=== PATIENT | female | born 1985 | race Caucasian/White ===

== ENCOUNTER 2017-04-19 14:15 | Emergency (ER) | payer OTHER ==
[~2017-04-19] VITALS: Ht 165.1 cm; Wt 113.5 kg
[2017-04-19 16:26] VITALS: BP 156/84
== END 2017-04-19 16:26 | disposition home or self-care (01) ==
LOC: ED 14:15
DX: M54.5 Low back pain (principal); R03.0 Elevated blood-pressure reading, without diagnosis of hypertension

== ENCOUNTER 2017-11-10 21:40 | Emergency (ER) | payer OTHER ==
[~2017-11-10] VITALS: Ht 170.2 cm; Wt 109.3 kg
[2017-11-10 22:02] VITALS: Ht 170.2 cm; Wt 109.3 kg
[2017-11-10 23:52] LABS: BASOPHIL % 0.2 % (0-2); PLATELET COUNT 376 x10^3mcL (130-400)
[2017-11-10 23:54] LABS: UA SPECIFIC GRAVITY >=1.030 (1.005-1.035); microscopic required? YES; urine erythrocyte 2+ (NEGATIVE)
[2017-11-11 00:01] LABS: CALCIUM 8.3 mg/dL (8.5-10.1); CHLORIDE SERUM 102 mmol/L (98-107); CREATININE SERUM 0.8 mg/dL (0.6-1.0); GFR1 > 60 mL/min; GLUCOSE SERUM 98 mg/dL (74-106); POTASSIUM SERUM 3.6 mmol/L (3.5-5.1); SODIUM SERUM 138 mmol/L (136-145)
[2017-11-11 00:04] LABS: RED CELL DISTRIBUTION WIDTH 21.8 % (11.5-14.5)
[2017-11-11 00:09] LABS: ALKALINE PHOSPHATASE 78 U/L (46-116); ALT/SGPT 21 U/L (14-59); AST/SGOT 14 U/L (15-37); BILIRUBIN TOTAL 0.2 mg/dL (0.20-1.00); LIPASE 306 IU/L (73-393); TOTAL PROTEIN, SERUM 7.6 g/dL (6.4-8.2)
[2017-11-11 00:10] LABS: ALBUMIN 3.2 g/dL (3.4-5.0)
[2017-11-11 01:12] VITALS: BP 148/75
== END 2017-11-11 01:12 | disposition home or self-care (01) ==
LOC: ED 21:40
PROVIDERS: Emergency Medicine
DX: O26.891 Other specified pregnancy related conditions, first trimester (principal); M54.5 Low back pain; Z3A.01 Less than 8 weeks gestation of pregnancy
CPT/HCPCS: 36415

== ENCOUNTER 2017-11-23 21:46 | Emergency (ER) | payer OTHER ==
[~2017-11-23] VITALS: Ht 175.3 cm; Wt 111.1 kg
[2017-11-23 22:26] VITALS: Ht 175.3 cm; Wt 111.1 kg
[2017-11-24 00:11] LABS: BASOPHIL % 0.9 % (0-2)
[2017-11-24 00:14] LABS: UA SPECIFIC GRAVITY 1.025 (1.005-1.035); microscopic required? YES; urine erythrocyte 2+ (NEGATIVE)
[2017-11-24 00:15] LABS: PLATELET COUNT 448 x10^3mcL (130-400); RED CELL DISTRIBUTION WIDTH 21.6 % (11.5-14.5)
[2017-11-24 02:00] VITALS: BP 128/75
== END 2017-11-24 01:50 | disposition home or self-care (01) ==
LOC: ED 21:46
PROVIDERS: Emergency Medicine
DX: O20.0 Threatened abortion (principal); Z3A.08 8 weeks gestation of pregnancy
CPT/HCPCS: 36415; Q0092

== ENCOUNTER 2017-12-04 18:12 | Emergency (ER) | payer OTHER ==
[~2017-12-04] VITALS: Ht 165.1 cm; Wt 99.8 kg
[2017-12-04 18:40] VITALS: Ht 165.1 cm; Wt 99.8 kg
[2017-12-04 19:40] LABS: BASOPHIL % 1.7 % (0-2); PLATELET COUNT 377 x10^3mcL (130-400)
[2017-12-04 19:44] LABS: RED CELL DISTRIBUTION WIDTH 22.7 % (11.5-14.5)
[2017-12-04 19:59] LABS: rbc morphology (normal/abnorm) ABNORMAL (NORMAL)
[2017-12-04 20:00] LABS: ovalocyte/elliptocyte 1+
[2017-12-04 21:45] VITALS: BP 134/78
[2017-12-04 22:12] LABS: microscopic required? YES; urine erythrocyte 3+ (NEGATIVE)
== END 2017-12-04 21:45 | disposition home or self-care (01) ==
LOC: ED 18:12
PROVIDERS: Emergency Medicine
DX: O20.0 Threatened abortion (principal); Z3A.12 12 weeks gestation of pregnancy
CPT/HCPCS: 36415